=== PATIENT | female | born 1935 | race Caucasian/White ===

== ENCOUNTER 2018-11-25 10:50 | Outpatient (CLI) | payer MEDICARE, MEDICAID ==
[~2018-11-25 10:50] MED LIST: REGADENOSON 0.4 MG/5 ML SYRINGE ONE
== END 2018-11-25 23:59 | disposition home or self-care (01) ==
LOC: CFH 10:50
PROVIDERS: ATTEND Internal Medicine Cardiovascular Disease
DX: I08.8 Other rheumatic multiple valve diseases (principal); I10 Essential (primary) hypertension; R06.02 Shortness of breath
CPT/HCPCS: 93306; J2785